=== PATIENT | male | born 1945 | race Caucasian/White ===

== ENCOUNTER 2022-01-19 11:49 | Outpatient (CLI) | payer MEDICARE, SELFPAY ==
--- NOTE | ~2022-01-19 | XR_ITS ---
EXAMINATION: XR chest 2V EXAM DATE: 01/19/2022 12:11 INDICATION: R07.89 - Other chest pain FU Covid Nov 17 TECHNIQUE: Frontal and lateral projections of the chest obtained and reviewed. Comparison is made to prior examination from 11/26/2019. FINDINGS: Small amount of bibasilar ill-defined atelectasis or pneumonia, was not present on prior st udy. Several scattered granulomas unchanged. No pneumothorax or pleural effusion. Cardiomediastinal s ilhouette is normal. There are no osseous abnormalities identified. IMPRESSION: Bibasilar ill-defined subsegmental atelectasis or pneumonia. Reviewed, dictated and finalized at location A. ARY PARAPROFESSIONAL
== END 2022-01-19 11:50 | disposition home or self-care (01) ==
PROVIDERS: PCP Internal Medicine; Visit Provider Physician Assistant
DX: R07.89 Other chest pain (principal); R91.8 Other nonspecific abnormal finding of lung field
CPT/HCPCS: 71046

== ENCOUNTER → 2023-07-15 13:08 | Outpatient (CLI) | payer MEDICARE, SELFPAY ==
--- NOTE | ~2023-07-15 | CT_ITS ---
EXAMINATION: CT abdomen pelvis w con DATE: 07/15/2023 13:36 INDICATION: Chronic abdominal pain. Diarrhea. TECHNIQUE: Computed tomography (CT) of the abdomen and pelvis was performed with 100 mL Omnipaque 350 intravenous contrast. Automated exposure control and iterative reconstruction technique were employe d. The dose-length product was 552.01 mGy-cm. COMPARISON: CT abdomen 08/10/2017 FINDINGS: The visualized portions of the lung bases demonstrate emphysema and mild atelectasis. Calci fied bilateral lung nodules are consistent with old granulomatous disease. No pleural effusion. The h eart size is normal. No pericardial effusion. There are coronary artery calcifications. There are cys ts in the liver measuring up to 14 mm. The gallbladder is normal. Calcifications in the spleen are co nsistent with old granulomatous disease. The pancreas, adrenal glands, and right kidney are normal. T here is cortical thinning of left kidney. There is a 5 mm stone in left kidney. There is a 4.0 cm fus iform aneurysm of infrarenal aorta with stent graft in expected position. Again seen is fat stranding around the aorta. The prostate is moderately enlarged. There is a left inguinal ring containing fat. There are no dilated loops of bowel. The appendix is normal. There is mild left para-aortic lymphade nopathy. There is mild lumbar spondylosis. IMPRESSION: 1. 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 2. Mild left para-aortic lymphadenopathy with improvement from 08/10/2017, likely reactive. 3. Left inguinal hernia containing fat. Reviewed, dictated and finalized at location A. IMPRESSION: 1. 4.0 cm fusiform aneurysm of abdominal aorta with stent graft in expected pos ition. 2. Mild left para-aortic lymphadenopathy with improvement from 08/10/2017, likel y reactive. 3. Left inguinal hernia containing fat.
[2023-07-15 13:26] LABS: Estimated Glomerular Filt Rate > 60
== END ==
PROVIDERS: PCP Internal Medicine; Visit Provider Internal Medicine
DX: R10.9 Unspecified abdominal pain (principal); K40.90 Unilateral inguinal hernia, without obstruction or gangrene, not specified as recurrent; I71.40 Abdominal aortic aneurysm, without rupture, unspecified
CPT/HCPCS: 74177; Q9967

== ENCOUNTER 2024-08-28 11:04 | Outpatient (CLI) | payer MEDICARE, SELFPAY ==
--- NOTE | ~2024-08-28 | XR_ITS ---
Clinical Indication: COPD PA and lateral views of the chest: Comparison: 01/19/2022 Findings: Calcified right lung granulomas are again present. The lungs are otherwise clear, without e vidence of focal consolidation or pleural effusion. Cardiomediastinal silhouette is within normal li mits. Bones and soft tissues are unremarkable. Impression: No acute abnormality. Reviewed, dictated and finalized at location . Impression: No acute abnormality.
== END 2024-08-28 11:05 | disposition home or self-care (01) ==
PROVIDERS: PCP Nurse Practitioner Family; Visit Provider Nurse Practitioner Family
DX: J44.9 Chronic obstructive pulmonary disease, unspecified (principal)
CPT/HCPCS: 71046

== ENCOUNTER 2024-11-29 14:37 | Outpatient (CLI) | payer MEDICARE, SELFPAY ==
--- NOTE | ~2024-11-29 | CT_ITS ---
CT Scan of the Chest without Contrast: Clinical Indication: Ascending aortic aneurysm Technique: Contiguous sections were acquired throughout the chest without intravenous contrast. Dose reduction technique was used on this scan by utilizing automated exposure control and iterative recon struction technique. The dose-length product (DLP) was 258.88 mGy-cm. Findings: There is no evidence of any significant mediastinal, hilar or axillary lymphadenopathy. There are ext ensive atherosclerotic calcifications of the aorta and coronary arteries. No aneurysm of the ascendin g aorta. Descending thoracic aorta measures up to a maximum of 3.8 cm in diameter. There is no evidence of pleural or pericardial effusion. Mild to moderate emphysema present. 7 mm right upper lobe pulmonary nodule present (axial image 36). Calcified right lower lobe granulomas are present. Images through the upper abdomen reveal no abnormalities. Impression: No ascending aortic aneurysm. Mild to moderate emphysema. 7 mm right upper lobe pulmonary nodule. According to Fleischner Society criteria, for a low-risk teresa ent, recommend follow up CT scan in 6-12 months, then consider additional 18-[address]. For a high- risk patient, follow-up CT scans at both 6-12 months and 18-24 months are recommended. Reviewed, dictated and finalized at [facility]. TRIMMER Impression: No ascending aortic aneurysm. Mild to moderate emphysema. 7 mm right upper lobe pulmonary nodule. According to Fleischner Society criteri a, for a low-risk patient, recommend follow up CT scan in 6-12 months, then con global position system technician additional 18-[address] For a high-risk patient, follow-up CT scans at both 6-12 months and 18-24 months are recommended.
--- NOTE | 2024-11-29 14:47 | ECHO_ITS ---
Patient Info Name: King Diez Age: 79 years : 1945 Gender: Male Ht: 71 in Wt: 180 lbs BSA: 2.03 m2 HR: 72 bpm BP: 140 / 75 mmHg Heart Rhythm: Sinus Rhythm Technical Quality: Good Exam Date: 11/29/2024 3:11 PM Exam Location: Echo Lab Exam Room: [facility] Patient Status: Outpatient Admit Date: 11/29/2024 Staff Ordering Physician: Tamie, Sy Toby Maker: Priscilla Vicente RDCS Attending Provider: Tamie, Sy Exam Type: CA echo doppler color flow Study Info Complete two-dimensional, color flow and Doppler transthoracic echocardiogram is performed. Summary 1. Complete two-dimensional, color flow and Doppler transthoracic echocardiogram is performed. 2. Grossly normal LV size with mildly reduced LV systolic function. 3. Normal RV size and functino. 4. Well preserved valvuar function. 5. No pericardial effusion. Left Ventricle Left ventricular chamber dimension is normal. Left ventricular systolic function is mildly reduced, estimated at 50-55%. There is no increased left ventricular wall thickness. Left ventricular septal wall motion is normal. The left ventricular diastolic function is normal. Right Ventricle Right ventricular chamber dimension is normal. Right ventricular systolic function is normal. Left Atria Left atrial chamber dimension is normal. Right Atria Right atrial chamber dimension is normal. Aortic Valve The aortic valve is trileaflet. There is mild aortic valve sclerosis. There is no aortic valve stenosis. There is no aortic valve regurgitation. Pulmonic Valve The pulmonic valve is normal. There is no pulmonic valve stenosis. There is trace pulmonic regurgitation. Mitral Valve The mitral valve has normal leaflets. There is no mitral valve stenosis. There is no mitral valve regurgitation. Tricuspid Valve The tricuspid valve leaflets are normal. There is no significant tricuspid valve stenosis. There is no tricuspid valve regurgitation. No pulmonary hypertension, estimated pulmonary arterial systolic pressure is Empty. Pericardium/Pleural The pericardium appears normal. There is no pericardial effusion. Inferior Vena Cava Normal inferior vena cava with >50% collapse upon inspiration consistent with Empty right atrial pressure, Empty. Aorta The aortic root size at the sinus of Valsalva is borderline dilated. The prox ascending aorta size is normal. Left Ventricular Outflow Tract Name Value Normal LVOT Doppler LVOT Peak Velocity 91 cm/s LVOT Peak Gradient 3 mmHg LVOT Mean Gradient 2 mmHg LVOT VTI 20 cm LVOT VTI/AV VTI Ratio 0.8 Pulmonic Valve Name Value Normal PV Doppler PV Peak Velocity 89 cm/s PV Peak Gradient 3 mmHg PV Regurgitation Doppler VT Peak End Diastolic Velocity 101 cm/s Mitral Valve Name Value Normal MV Doppler MV Peak Gradient 3 mmHg MV Mean Gradient 1 mmHg MV Decel [place] 247 cm/s2 MV PHT 74 ms MV Area (PHT) 3.0 cm2 4.0-5.0 MV Diastolic Function MV E Peak Velocity 63 cm/s MV A Peak Velocity 77 cm/s MV E/A 0.8 MV Decel Time 256 ms Aortic Valve Name Value Normal AV Doppler AV Peak Velocity 95 cm/s AV Peak Gradient 4 mmHg AV Mean Gradient 2 mmHg AV VTI 24 cm AV V1/V2 Ratio 0.96 Ventricles Name Value Normal LV Dimensions 2D/MM IVS Diastolic Thickness (2D) 0.8 cm 0.6-1.0 LVID Diastole (2D) 5.1 cm 4.2-5.8 LVIW Diastolic Thickness (2D) 1.0 cm 0.6-1.0 LVID Systole (2D) 3.8 cm 2.5-4.0 LV Mass (2D Cubed) 170.08 g 88.00-224.00 LV Mass Index (2D Cubed) 84 g/m2 49-115 Relative Wall Thickness (2D) 0.41 LV Fractional Shortening/Ejection Fraction 2D/MM LV Fractional Shortening (2D) 25 % 25-43 LV EF (2D Teicholz) 50 % 52-72 LV Diastolic Volume (4C MOD) 150 ml LV EF (4C MOD) 59 % LV Diastolic Length (4C) 8.9 cm LV Systolic Length (4C) 7.4 cm LV Stroke Volume (4C MOD) 89 ml Atria Name Value Normal LA Dimensions LA Volume (4C A-L) 50 ml Report Signatures
== END 2024-11-29 14:38 | disposition home or self-care (01) ==
PROVIDERS: PCP Family Medicine
DX: R06.09 Other forms of dyspnea (principal); I71.21 Aneurysm of the ascending aorta, without rupture; J43.9 Emphysema, unspecified; R91.1 Solitary pulmonary nodule
CPT/HCPCS: 71250; 93306